=== PATIENT | female | born 1990 | race Caucasian/White ===

== ENCOUNTER 2025-05-15 11:00 | Outpatient (RCR) | payer OTHER, SELFPAY | END 2025-08-14 08:16 | disposition home or self-care (01) | PROVIDERS: Visit Provider Chiropractor | DX: M54.2 Cervicalgia (principal); M54.50 Low back pain, unspecified; M54.16 Radiculopathy, lumbar region; M54.6 Pain in thoracic spine; Z51.89 Encounter for other specified aftercare | CPT/HCPCS: 97012; 97110; 97112; 97140; 97163 ==